=== PATIENT | male | born 1995 | race Caucasian/White ===

== ENCOUNTER 2019-02-18 13:08 | Emergency (ER) | payer SELFPAY ==
[2019-02-18 13:17] VITALS: BP 127/69; PULSE 118; RESP 20; TEMP 36.6; O2SAT 99; BMI 18.8
--- NOTE | 2019-02-18 13:23 | W.ED.EXTPRO ---
HPI - Extremity Problem General: Chief complaint: Extremity Injury, Lower Stated complaint: foot injury, patient reports yesterday dropping piece of wood on right foot while cutting wood, patient reports using acetaminophen and ibuprofen with minimal relief of pain. Patient appears well, Patient appears in moderate pain Time Seen by Provider: 02/18/19 13:22 Source: patient Mode of arrival: ambulatory Limitations: no limitations Review of Systems General: Reports: 10 or more systems reviewed and unremarkable except in HPI and below Musc: Reports: extremity pain (right foot) PFSH ED PFSH: Statuses (acute, chronic, etc) shown below reflect problem list status as previously entered and may not be historically accurate Social History Smoking and tobacco status: current every day smoker Physical Exam Const: COMMON NORMALS: no apparent distress and oriented x3 GENERAL APPEARANCE: cooperative HENMT: COMMON NORMALS: normocephalic, external ears normal, EAC's normal, TM's normal bilaterally and external nose normal HEAD & SCALP: normal to inspection and normocephalic FACE & SINUS: normal facial exam NOSE: external nose normal GENERAL EAR: hearing grossly impaired EXTERNAL EAR: Yes external ears normal EXTERNAL AUDITORY CANAL: EAC's normal TYMPANIC MEMBRANE: TM's normal bilaterally MOUTH: oral and palatal mucosa normal THROAT: posterior oropharynx normal Eye: COMMON NORMALS: PERRL and EOMs intact bilaterally PUPIL: Yes PERRL Neck/C-Spine: COMMON NORMALS: full ROM and no lymphadenopathy Lymph: LYMPHATIC: no lymphedema noted Chest: COMMONS NORMALS: inspection of chest normal and palpation of chest normal Resp: COMMON NORMALS: normal respiratory effort and clear to auscultation bilaterally AUSCULTATION: clear to auscultation bilaterally Cardio: COMMON NORMALS: regular rate and regular rhythm RATE: regular rate RHYTHM: regular rhythm GI: COMMON NORMALS: normal to inspection, nondistended, normoactive bowel sounds and non-tender : COMMON NORMALS: Yes no CVA tenderness BLADDER/KIDNEY EXAM: Yes no CVA tenderness Back/Pelvis: COMMON NORMALS: no CVA tenderness and thoracic and lumbar spine normal to inspection Extremity: GENERAL: Yes edema (mild dorsal right foot, mild ecchymosis, strong pulse,) Neuro: COMMON NORMALS: oriented x3, moves all extremities and no focal motor deficits Psych: COMMON NORMALS: mental status grossly normal and cooperative Skin: COMMON NORMALS: no rashes or lesions noted GENERAL SKIN EXAM: no rashes or lesions noted Course Vital Signs: Vital signs: Vital Signs Temperature 97.8 F 02/18/19 13:17 Pulse Rate 104 H 02/18/19 13:58 Respiratory Rate 17 02/18/19 13:58 Blood Pressure 133/67 02/18/19 13:58 Pulse Oximetry 99 02/18/19 13:58 MDM - Extremity (Nontraumatic) MDM Narrative: Medical decision making narrative: Patient comes in for injury to the right foot. On exam we note minimal dorsal swelling and ecchymosis. No signs of significant deformity to the foot. Differential diagnosis includes fracture, sprain, contusion. X-ray noted no obvious fracture. Recommend patient follow-up with primary care for further treatment and evaluation. Patient is weightbearing as tolerated. Elastic bandage for comfort. Imaging Data^: Other Imaging: My impression: right foot no fracture noted Discharge Plan Discharge Patient Disposition: Home, Self-Care Clinical Impression: Contusion of foot Qualifiers: Encounter type: initial encounter Laterality: right Qualified Code(s): S90.31XA - Contusion of right foot, initial encounter Condition: Stable Prescriptions: New diclofenac sodium 75 mg tablet,delayed release (DR/EC) 75 mg PO BID Qty: 10 RF: 0 Discharge Orders: Discharge Order (Routine); Ordered 02/18/19 Ordered By: Mike Alejandre Referrals: Nam Colby MD [Family Provider] - Discharge Diet: Usual diet Discharge Activity: Use walker/crutches as instructed Patient Instructions: Contusion Activity Restrictions/Additional Instructions: activity as tolerated Acetaminophen for further pain relief Ice or heat for further comfort Crutches until you can walk comfortably on foot Follow-up with primary care for further treatment Return to ER for increasing redness and swelling to foot Coding Level of Care Code ED Data Technician for Chinedu Drake Exam Problem Focused
[2019-02-18 13:28] VITALS: BP 133/67; PULSE 123; RESP 18; O2SAT 99
--- NOTE | 2019-02-18 13:30 | XRR_ITS ---
PROCEDURE INFORMATION: Exam: XR Right Foot Complete Exam date and time: 02/18/2019 1:31 PM Age: 23 years old Clinical indication: Injury or trauma; Injury history: Dropped log on RT foot; Initial encounter; Blunt trauma; Right TECHNIQUE: Imaging protocol: XR Right foot. Views: 3 or more views. COMPARISON: No relevant prior studies available. FINDINGS: Bones/joints: Normal. Soft tissues: Normal. XR/XR foot RT min 3V* [id number] IMPRESSION: No acute findings.
[2019-02-18] MEDS: HYDROcodone-acetaminophen 7.5-325 mg Tablet 1 TAB PO (13:36)
[2019-02-18 13:58] VITALS: BP 133/67; PULSE 104; RESP 17; O2SAT 99
--- NOTE | 2019-02-18 13:58 | PC.NURSE ---
Radiology at bedside
[2019-02-18 14:34] VITALS: BP 122/67; PULSE 107; RESP 17; O2SAT 97
== END 2019-02-18 14:42 | disposition home or self-care (01) ==
PROVIDERS: Emergency Provider Nurse Practitioner Family; Family Provider General Practice
DX: S90.31XA Contusion of right foot, initial encounter (principal); W20.8XXA Other cause of strike by thrown, projected or falling object, initial encounter; F17.210 Nicotine dependence, cigarettes, uncomplicated
CPT/HCPCS: 73630; 99281; 99283

== ENCOUNTER → 2021-03-12 13:37 | Outpatient (BNVA) | payer OTHER, SELFPAY | PROVIDERS: Family Provider General Practice; Visit Provider Nurse Practitioner Family | DX: Z20.822 Contact with and (suspected) exposure to COVID-19 (principal) | CPT/HCPCS: 87635 ==